=== PATIENT | male | born 1955 | race Two or more races ===

== ENCOUNTER 2022-06-27 16:56 | Emergency (ER) | payer BC, SELFPAY ==
--- NOTE | ~2022-06-27 | CT_ITS ---
EXAMINATION: CT ABDOMEN AND PELVIS WITHOUT CONTRAST CLINICAL INFORMATION: Right lower quadrant pain COMPARISON: None TECHNIQUE: Multidetector volumetric imaging was performed from the superior aspect of the liver through the pubic symphysis. Sagittal and coronal reformatted images were obtained on the technologist's workstation. This CT examination was performed using dose optimization techniques as appropriate, variously including the following: *Automated exposure control *Adjustment of mA and/or kV according to patient size (this includes techniques or standardized protocols for targeted exams where dose is matched to indication/reason for exam; i.e. extremities or head) *Use of iterative reconstruction technique DLP: 849 mGy-cm FINDINGS: LUNG BASES: Minimal dependent right basilar atelectasis. Status post median sternotomy and aortic valve replacement. Left circumflex coronary stent suspected. LIVER, GALLBLADDER, AND BILIARY TREE: Mild hepatic hypoattenuation suggesting mild steatosis. 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 No liver lesion. No biliary ductal dilation. The gallbladder is unremarkable with no evidence of radiopaque gallstones, gallbladder wall thickening, or obvious pericholecystic inflammatory changes. PANCREAS: Unremarkable. SPLEEN: Unremarkable. ADRENAL GLANDS: Small calcification at the margin of left adrenal gland, nonspecific and of no clinical significance. Adrenal glands otherwise unremarkable. KIDNEYS AND URETERS: 2 [id number] stones in the distal right ureter just proximal to the UVJ, largest 3 mm in size. Mild right hydroureteronephrosis. Approximately 3 small nonobstructing right renal calculi, largest in the upper pole measuring 3 mm in size. 2 mm left upper pole nonobstructing renal calculus. 4 cm partially exophytic mid to lower pole simple renal cyst. No other renal lesions. Mild bilateral perirenal fascial stranding. BLADDER: Unremarkable. GASTROINTESTINAL TRACT: The small and large bowel are unremarkable. The appendix is unremarkable. No ascites. No free air. ABDOMINAL WALL: Small fat-containing inguinal hernias. LYMPH NODES: Mildly enlarged portacaval lymph node measuring 1.1 cm in short axis, nonspecific. No other lymphadenopathy. VASCULAR: Mild scattered vascular calcifications. Normal caliber abdominal aorta. PELVIC VISCERA: Unremarkable. OSSEOUS STRUCTURES: No acute fracture or suspicious osseous lesion. Mild disc degenerative changes most prominent in the lower thoracic spine. Mild SI joint degenerative changes bilaterally with prominent subchondral sclerosis and small osteophytes. CT/CT abdomen pelvis wo con IMPRESSION: 1. 2 small [id number] right distal ureteral stones, largest 3 mm in size with mild right hydroureteronephrosis. 2. A few additional small nonobstructing bilateral renal calculi, as above. 3. No other acute intra-abdominal process. 4. Additional ancillary findings, as above.
[2022-06-27 17:06] VITALS: BP 152/76; PULSE 57; RESP 18; TEMP 36.2; O2SAT 98; BMI 36.1
[2022-06-27 18:22] LABS: Basophils Percent Auto 0.1 % (0-2); Eosinophils Percent Auto 0.4 % (0-4); Hematocrit 45.5 % (42.0-52.0); Mean Corpuscular Volume 87.3 fL (80.0-98.0); PLT CLUMP 1; Red Blood Count 5.21 X10*6/uL (4.60-5.80); SCAN SMEAR FLAG 1
[2022-06-27 18:23] LABS: Hemoglobin 15.2 g/dl (14.0-18.0); Imm Gran Abs Auto 0.03 X10*3/uL (0.00-0.03); Imm Gran Pct Auto 0.3 % (0.0-0.4); Lymphocytes Absolute Auto 0.8 X10*3/uL (1.2-4.9); MANUAL DIFF FLAG SCAN; Mean Corpuscular HGB Conc 33.4 g/dl (31.0-36.0); Mean Corpuscular Hemoglobin 29.2 pg (27.0-33.0); Mean Platelet Volume 10.7 fL (9.4-12.4); Monocytes Absolute Auto 0.6 X10*3/uL (0.1-1.2); Monocytes Percent Auto 7.2 % (2-11); Neutrophils Absolute Auto 7.4 x10*3/uL (2.0-8.3)
[2022-06-27 18:38] LABS: Alanine Aminotransferase 32 U/L (0-40); Albumin Level 4.6 g/dL (3.5-5.0); Alkaline Phosphatase 85 U/L (39-117); Anion Gap 18 (12-20); Aspartate Amino Transferase 24 U/L (5-37); Bilirubin Total 0.7 mg/dL (0.0-1.0); Blood Urea Nitrogen 22 mg/dL (9-16); Calcium 9.4 mg/dL (8.4-10.2); Carbon Dioxide 23 mmol/L (22-29); Chloride 101 mmol/L (96-108); Creatinine Clr Calc Pharmacy 54.1; Estimated Glomerular Filt Rate 47; Glucose Random 308 mg/dL (60-115); Potassium 5.2 mmol/L (3.3-5.1); Sodium 137 mmol/L (135-145); Total Protein 7.8 g/dL (6.5-8.0)
[2022-06-27 18:42] LABS: Platelet Count 127 X10*3/uL (160-400); White Blood Count 8.9 X10*3/uL (4.8-10.8)
[2022-06-27 18:43] LABS: SLIDE REVIEW VERIFIED
[2022-06-27 20:22] VITALS: BP 147/79; PULSE 66; RESP 18; TEMP 37; O2SAT 97
[2022-06-27 20:47] LABS: Appearance Urine CLEAR; Color Urine YELLOW; Glucose Urine UA 250 MG/DL (NEG); Leukocyte Esterase Urine NEG (NEG); Nitrite Urine NEG (NEG); PH 5.5 (5.0-8.0); Specific Gravity - Urine 1.025 (1.005-1.025); UACC Culture Trigger NO; Urine Blood TRACE (NEG); Urine Ketones NEG (NEG); Urine Protein TRACE MG/DL (NEG-TRACE)
[2022-06-27 20:57] LABS: Bacteria Urine 1+ /LPF; WBC Urine 0 /HPF (0-4)
--- NOTE | 2022-06-27 21:07 | ED.ABDPAIN ---
HPI - Abdominal Pain General Chief Complaint: Abdominal Pain Stated Complaint: R sided abd pain Time Seen by Provider: 06/27/22 21:07 Source: patient Mode of arrival: ambulatory Limitations: no limitations History of Present Illness HPI narrative: 67 yo male with hx of CAD s/p PCI with stent, valve replacement on coumadin, DM, HTN, kidney stones in past here with c/o R sided abdominal pain and nausea - onset this AM. States it feels like a kidney stone. Normally goes to [facility] but didn't want to wait. MD elicited complaint: flank pain Pertinent past history: kidney stones Onset (ago): day(s) (early this AM) Pain Consistency: constant Location: RLQ and R flank Severity: moderate Quality: stabbing Radiation: none Migration to: no migration Exacerbating factors: nothing Relieving factors: nothing Context: history of similar episodes Associated symptoms: nausea Related Data Previous Rx's Medication Instructions Recorded morphine 15 mg immediate release 15 mg PO TID PRN pain #12 tabs 06/27/22 tablet ondansetron 4 mg disintegrating 4 mg PO Q8H PRN nausea and 06/27/22 tablet vomiting #20 tabs Allergies Allergy/AdvReac Type Severity Reaction Status Date / Time No Known Allergies Allergy Verified 06/27/22 17:06 Review of Systems Review of Systems Constitutional : No Weight loss, No Fever, No Chills ENT/Mouth : No sore throat, No Rhinorrhea Eyes: No Swelling, No Redness Cardiovascular : No Chest Pain, No SOB, NoEdema Respiratory : No Cough, No Sputum, No Wheezing Gastrointestinal : Positive Nausea, no Vomiting, no Diarrhea, positive abdominal Pain, No Hematochezia, No Melena Genitourinary : No Dysuria, No Urinary Frequency, No Hematuria, No Urgency Musculoskeletal : No joint pain, No Myalgias, No Joint Swelling Skin : No Skin Lesions, No rash Neuro : No Weakness, No Numbness, No Dizziness, No Headache Psych : No Anxiety/Panic, No Depression Heme/Lymph: No Bruising, No Lymphadenopathy Endocrine : No Polyuria, No Polydipsia All other systems reviewed and are negative. [facility] Past Medical History Attestation statement: The following information was validated with the patient. Medical History (Updated 06/27/22 @ 22:54 by Radha Trevino DO) CAD (coronary artery disease) Diabetes HTN (hypertension) Kidney stone Surgical History (Updated 06/27/22 @ 22:54 by Radha Trevino DO) Aortic valve replaced Heart valve replaced Social History Social History (Updated 06/27/22 @ 21:31 by Radha Trevino DO) Patient Tobacco Use Status: Tobacco use Unknown Advance Directives: No Advance Directives Information Provided: No Physical Exam ED Vital Signs: Vital Signs - 24 hr 06/27/22 17:06 06/27/22 20:22 Temperature 97.2 F 98.6 F Pulse Rate 57 66 Respiratory Rate 18 18 Blood Pressure 152/76 H 147/79 H Pulse Oximetry 98 97 Oxygen Delivery Method Room Air Room Air BMI result Body Mass Index 36.1 Appearance: Alert. Oriented X3. No acute distress. Eyes: Pupils equal, round and reactive to light. ENT: Pharynx normal. Neck: Normal inspection. Neck supple. CVS: Normal heart rate and rhythm. Pulses normal. Respiratory: No respiratory distress. Breath sounds normal. Abdomen: Soft and ttp in R mid abdomen on peritoneal signs Skin: Skin warm and dry. Normal skin color. Normal skin turgor. Extremities: No lower extremity edema. No calf ttp Neuro: Oriented X 3. No motor deficit. No sensory deficit. Course Course Course Narrative: prior Cr 0.8 in March plts 147 in March as well small 3mm stones mild hydro will repeat Cr Cr 1.4 pain improved will give oral morphine he is already on tamsulosin at home - expect him to pass stones at home given size and location will hold losartan and metformin until Wednesday MDM - Abdominal Pain MDM Narrative Medical decision making narrative: 67 yo male with hx of CAD s/p PCI with stent, valve replacement on coumadin, DM, HTN, kidney stones here with c/o R sided abdominal pain and nausea - at this time he feels he has a kidney stones. States he normally passes these at home. At this time will need labs, UA, CT scan for renal colic, appendicitis, IVF, IV morphine for pain. Requesting prior labs from [facility] [place]. Lab Data Result diagrams: 06/27/22 18:01 06/27/22 23:17 Labs: Lab Results 06/27/22 06/27/22 06/27/22 Range/Units 18:01 18:01 20:34 WBC 8.9 (4.8-10.8) X10*3/uL RBC 5.21 (4.60-5.80) X10*6/uL Hgb 15.2 (14.0-18.0) g/dl Hct 45.5 (42.0-52.0) % MCV 87.3 (80.0-98.0) fL MCH 29.2 (27.0-33.0) pg MCHC 33.4 (31.0-36.0) g/dl RDW 13.0 (11.0-16.0) % Plt Count 127 L (160-400) X10*3/uL MPV 10.7 (9.4-12.4) fL Immature Gran % (Auto) 0.3 (0.0-0.4) % Neut % (Auto) 83.0 H (45-73) % Lymph % (Auto) 9.0 L (20-40) % [place] % (Auto) 7.2 (2-11) % Eos % (Auto) 0.4 (0-4) % Baso % (Auto) 0.1 (0-2) % Lymph # (Auto) 0.8 L (1.2-4.9) X10*3/uL [place] # (Auto) 0.6 (0.1-1.2) X10*3/uL Eos # (Auto) 0.0 (0.0-0.4) X10*3/uL Baso # (Auto) 0.0 (0.0-0.2) X10*3/uL Abs Immat Gran (auto) 0.03 (0.00-0.03) X10*3/uL Absolute Neuts (auto) 7.4 (2.0-8.3) x10*3/uL Absolute Nucleated RBC 0.000 (0.0-0.012) X10*3/uL Nucleated RBC % (auto) 0.0 (0.0-0.2) /100WBC Smear Tech's Comments VERIFIED PT (10.0-13.1) SEC INR (0.9-1.1) Sodium 137 (135-145) mmol/L Potassium 5.2 H (3.3-5.1) mmol/L Chloride 101 (96-108) mmol/L Carbon Dioxide 23 (22-29) mmol/L Anion Gap 18 (12-20) BUN 22 H (9-16) mg/dL Creatinine 1.50 H (0.5-1.4) mg/dL Estim Creat Clear Calc 54.1 Estimated GFR 47 Random Glucose 308 H (60-115) mg/dL Calcium 9.4 (8.4-10.2) mg/dL Total Bilirubin 0.7 (0.0-1.0) mg/dL AST 24 (5-37) U/L ALT 32 (0-40) U/L Alkaline Phosphatase 85 (39-117) U/L Total Protein 7.8 (6.5-8.0) g/dL Albumin 4.6 (3.5-5.0) g/dL Lipase 19 (8-78) U/L Urine Color YELLOW Urine Appearance CLEAR Urine pH 5.5 (5.0-8.0) Ur Specific Schwertner 1.025 (1.005-1.025) Urine Protein TRACE (NEG-TRACE) MG/DL Urine Glucose (UA) 250 H (NEG) MG/DL Urine Ketones NEG (NEG) MG/DL Urine Blood TRACE (NEG) Urine Nitrite NEG (NEG) Ur Leukocyte Esterase NEG (NEG) Urine RBC 1-4 (0) /HPF Urine WBC 0 (0-4) /HPF Ur Squamous Epith Cells NONE /LPF Urine Bacteria 1+ /LPF 06/27/22 06/27/22 Range/Units 21:39 23:17 WBC (4.8-10.8) X10*3/uL RBC (4.60-5.80) X10*6/uL Hgb (14.0-18.0) g/dl Hct (42.0-52.0) % MCV (80.0-98.0) fL MCH (27.0-33.0) pg MCHC (31.0-36.0) g/dl RDW (11.0-16.0) % Plt Count (160-400) X10*3/uL MPV (9.4-12.4) fL Immature Gran % (Auto) (0.0-0.4) % Neut % (Auto) (45-73) % Lymph % (Auto) (20-40) % [place] % (Auto) (2-11) % Eos % (Auto) (0-4) % Baso % (Auto) (0-2) % Lymph # (Auto) (1.2-4.9) X10*3/uL [place] # (Auto) (0.1-1.2) X10*3/uL Eos # (Auto) (0.0-0.4) X10*3/uL Baso # (Auto) (0.0-0.2) X10*3/uL Abs Immat Gran (auto) (0.00-0.03) X10*3/uL Absolute Neuts (auto) (2.0-8.3) x10*3/uL Absolute Nucleated RBC (0.0-0.012) X10*3/uL Nucleated RBC % (auto) (0.0-0.2) /100WBC Smear Tech's Comments PT 35.4 H (10.0-13.1) SEC INR 2.9 H (0.9-1.1) Sodium 138 (135-145) mmol/L Potassium 5.1 (3.3-5.1) mmol/L Chloride 104 (96-108) mmol/L Carbon Dioxide 21 L (22-29) mmol/L Anion Gap 18 (12-20) BUN 20 H (9-16) mg/dL Creatinine 1.46 H (0.5-1.4) mg/dL Estim Creat Clear Calc 55.5 Estimated GFR 48 Random Glucose 161 H D (60-115) mg/dL Calcium 8.6 D (8.4-10.2) mg/dL Total Bilirubin (0.0-1.0) mg/dL AST (5-37) U/L ALT (0-40) U/L Alkaline Phosphatase (39-117) U/L Total Protein (6.5-8.0) g/dL Albumin (3.5-5.0) g/dL Lipase (8-78) U/L Urine Color Urine Appearance Urine pH (5.0-8.0) Ur Specific Schw[place]ner (1.005-1.025) Urine Protein (NEG-TRACE) MG/DL Urine Glucose (UA) (NEG) MG/DL Urine Ketones (NEG) MG/DL Urine Blood (NEG) Urine Nitrite (NEG) Ur Leukocyte Esterase (NEG) Urine RBC (0) /HPF Urine WBC (0-4) /HPF Ur Squamous Epith Cells /LPF Urine Bacteria /LPF Discharge Plan Discharge Clinical Impression: Ureterolithiasis, Acute dehydration Instructions: Dehydration (ED), Ureteral Stones (ED) Additional Instructions: INR 2.9 REPEAT KIDNEY FUNCTION TESTS BY WEDNESDAY OR WEDNESDAY WITH YOUR PRIMARY CARE DOCTOR IF PAIN NOT IMPROVED BY WEDNESDAY CALL UROLOGIST IF PAIN/FEVERS/VOMITING OCCURS COME BACK TO THE EMERGENCY DEPARTMENT HOLD METFORMIN AND LOSARTAN DO NOT TAKE UNTIL WEDNESDAY MORNING KIDNEYS AND URETERS: 2 [id number] stones in the distal right ureter just proximal to the UVJ, largest 3 mm in size. Mild right hydroureteronephrosis. Approximately 3 small nonobstructing right renal calculi, largest in the upper pole measuring 3 mm in size. 2 mm left upper pole nonobstructing renal calculus. 4 cm partially exophytic mid to lower pole simple renal cyst. No other renal lesions. Mild bilateral perirenal fascial stranding.? Prescriptions: New morphine 15 mg tablet 15 mg PO TID PRN (Reason: pain) Qty: 12 0RF Rx Instructions: partial fill okay; Partial Fill upon patient request. ondansetron 4 mg tablet,disintegrating 4 mg PO Q8H PRN (Reason: nausea and vomiting) Qty: 20 0RF Referrals: Neftali Dunn MD [Physician] - 3 days (UROLOGIST IF NOT BETTER) Physician,Tawny Marinelli [Primary Care Provider] - 06/29/22 (PRIMARY CARE WEDNESDAY) Stand Alone Forms: Work/School Release
[2022-06-27] MEDS: 0.9 % Sodium Chloride 1,000 ML 999 ML IV (21:42)
[2022-06-27] MEDS: ondansetron HCL 4 MG/2 ML VIAL IVPUSH (21:42)
[2022-06-27] MEDS: Morphine Sulfate 4 MG/ML CARTRIDGE IVPUSH (21:42)
[2022-06-27 21:51] LABS: Lipase 19 U/L (8-78)
[2022-06-27 21:55] LABS: INTERNATIONAL NORM RATIO 2.9 (0.9-1.1); Prothrombin Time 35.4 SEC (10.0-13.1)
[2022-06-27] MEDS: Tamsulosin HCL 0.4 MG CAPSULE PO (22:33)
[2022-06-27 23:40] LABS: Anion Gap 18 (12-20); Blood Urea Nitrogen 20 mg/dL (9-16); Calcium 8.6 mg/dL (8.4-10.2); Carbon Dioxide 21 mmol/L (22-29); Chloride 104 mmol/L (96-108); Creatinine Clr Calc Pharmacy 55.5; Estimated Glomerular Filt Rate 48; Glucose Random 161 mg/dL (60-115); Potassium 5.1 mmol/L (3.3-5.1); Sodium 138 mmol/L (135-145)
[2022-06-28] MEDS: Morphine Sulfate Immed Release 15 MG TABLET PO (00:29)
--- NOTE | 2022-06-28 00:41 | PC.NURSE ---
Pt. came in for abdominal pain at 07/08. Medicated with morphine per JAN. Pt. reports slight decrease in pain 04/07. Medicated with PO morphine at d/c.
== END 2022-06-28 00:46 | disposition home or self-care (01) ==
PROVIDERS: Emergency Provider Emergency Medicine
DX: N13.2 Hydronephrosis with renal and ureteral calculous obstruction (principal); E86.0 Dehydration; R10.9 Unspecified abdominal pain; E11.9 Type 2 diabetes mellitus without complications; I10 Essential (primary) hypertension; Z87.442 Personal history of urinary calculi; Z95.4 Presence of other heart-valve replacement; Z79.01 Long term (current) use of anticoagulants
CPT/HCPCS: 36415; 74176; 80048; 80053; 81001; 83690; 85025; 85610; 96361; 96374; 96375; 99284; J2270; J2405